=== PATIENT | male | born 1975 | race Caucasian/White ===

== ENCOUNTER 2017-12-18 13:44 | Outpatient (CLI) | END 2017-12-18 13:45 | disposition home or self-care (01) ==

== ENCOUNTER 2018-01-30 20:32 | Outpatient (CLI) | payer OTHER | END 2018-01-30 20:33 | disposition home or self-care (01) | LOC: SC 20:32 | PROVIDERS: ATTEND Internal Medicine Pulmonary Disease | DX: G47.33 Obstructive sleep apnea (adult) (pediatric) (principal) | CPT/HCPCS: 95810 ==

== ENCOUNTER 2018-03-05 09:14 | Outpatient (CLI) | payer OTHER | END 2018-03-05 09:15 | disposition home or self-care (01) | LOC: SC 09:14 | PROVIDERS: ATTEND Internal Medicine Pulmonary Disease | DX: G47.33 Obstructive sleep apnea (adult) (pediatric) (principal) | CPT/HCPCS: 99212; 99213 ==

== ENCOUNTER 2018-05-06 20:31 | Outpatient (CLI) | payer OTHER | END 2018-05-06 20:32 | disposition home or self-care (01) | LOC: SC 20:31 | PROVIDERS: ATTEND Internal Medicine Pulmonary Disease | DX: G47.33 Obstructive sleep apnea (adult) (pediatric) (principal) | CPT/HCPCS: 95811 ==

== ENCOUNTER 2018-07-10 09:06 | Outpatient (CLI) | payer OTHER | END 2018-07-10 09:07 | disposition home or self-care (01) | LOC: SC 09:06 | PROVIDERS: ATTEND Nurse Practitioner Family | DX: G47.33 Obstructive sleep apnea (adult) (pediatric) (principal) | CPT/HCPCS: 99212; 99214 ==

== ENCOUNTER 2018-11-07 12:46 | Outpatient (CLI) | payer OTHER | END 2018-11-07 12:47 | disposition home or self-care (01) | LOC: SC 12:46 | PROVIDERS: ATTEND Nurse Practitioner Family | DX: G47.33 Obstructive sleep apnea (adult) (pediatric) (principal) | CPT/HCPCS: 99212; 99214 ==